=== PATIENT | male | born 1985 | race Hispanic/Latino ===

== ENCOUNTER 2024-06-19 16:26 | Emergency (ER) | payer BC ==
[~2024-06-19] VITALS: Ht 170.2 cm; Wt 81.6 kg
[2024-06-19 16:39] VITALS: BP 146/106; PULSE 94; RESP 18; TEMP 97.9
--- NOTE | 2024-06-19 18:13 | ERN ---
General Chief Complaint: Cough Stated Complaint: FEVER,NAUSEA,MULTIPLE COMPLAINTS Time Seen by MD: 17:00 Time Seen by Midlevel: 17:00 Source: patient History of Present Illness Initial Comments The patient is a 38-year-old male with no significant past medical history presenting to the emergency department with multiple complaints. Patient has been having intermittent episodes of subjective fever. He reports midepigastric abdominal pain that comes and goes. Associated symptoms include nausea and a persistent cough. Denies any sick contacts. Denies taking any medications on a daily basis. He was going to see his primary care doctor today but they did not accept walk-in so he decided to report to the ER for further evaluation. Allergies: Coded Allergies: Penicillins (Verified Allergy, 02/05/13) Past Medical History Past Medical History: Other Medical History Other: CHRONIC BACK PAIN Past Surgical History: None ROS Dictation CONSTITUTIONAL: Negative except for HPI HEAD/FACE: Negative except for HPI EENT: Negative except for HPI RESPIRATORY: Negative except for HPI GASTROINTESTINAL/ABDOMINAL: Negative except for HPI GENITOURINARY: Negative except for HPI MUSCULOSKELETAL: Negative except for HPI INTEGUMENTARY: Negative except for HPI NEUROLOGICAL/PSYCH: Negative except for HPI HEMATOLOGIC/LYMPHATIC: Negative except for HPI All Systems Negative, Except as noted above. 13 point review of systems assessed and all negative except for above. Physical Exam Physical Exam Dictation Vital Signs reviewed General Appearance: Alert, oriented x 3, no acute distress, well developed, nourished. Head and Face: non-traumatic. Eyes: PERRL, pink conjunctivas, eyelid no trauma, anterior chamber with arcus senilis. Ears: Pinnas intact and no signs of trauma or erythema ear canals clear and no discharge TM no erythema Nose: No discharge, no bleeding. Oropharynx: Mouth normal, tongue pink, pharynx clear,no erythema, tonsils no exudates, no abscesses noted, mucous membrane moist Neck: Supple, non-tender, no thyromegaly, no masses, no JVD, no bruits Breast:Deferred Chest:No tenderness, no crepitus, no paradoxical movement, no retractions Lungs:Clear, well-ventilated, symmetric, no rales, no wheezing, no rhonchi, no stridor, good breath sounds bilaterally Heart: Regular rate, regular rhythm, no murmur, no gallops Vascular: no peripheral edema, Abdomen: Soft, positive bowel sounds, nondistended, no guarding, nontender, no rebound, no masses no hepatomegaly, no splenomegaly, no Marsh's sign, no hernias. Rectal: Deferred Genital: Deferred Neurological: Normal speech, motor function intact, sensory function intact Musculoskeletal: Neck nontender, full range of motion, back nontender, full range of motion, Extremities: nontender, full range of motion Skin: Color pink, dry, no turgor, no rash, no lacerations, no abrasions, no contusions. Lymphatic: Deferred Results Laboratory and Microbiology Lab and Micro Result Laboratory Tests Test 06/19/24 19:17 White Blood Count 9.3 K/uL (4.8-10.8) Red Blood Count 5.00 MIL/uL (4.50-6.20) Hemoglobin 15.2 g/dL (14.0-18.0) Hematocrit 44.9 % (42-54) Mean Corpuscular Volume 89.8 fL (79-99) Mean Corpuscular Hemoglobin 30.4 pg (27.0-33.0) Mean Corpuscular Hemoglobin Concent 33.9 g/dL (32.0-36.0) Red Cell Distribution Width 12.9 % (11.0-15.5) Platelet Count 232 K/uL (130-400) Mean Platelet Volume 10.2 fL (7.5-10.5) Immature Granulocyte % (Auto) 0.5 % (0-1) Neutrophils (%) (Auto) 63.1 % (40.0-77.0) Lymphocytes (%) (Auto) 27.8 % (21.0-51.0) Monocytes (%) (Auto) 6.6 % (3.0-13.0) Eosinophils (%) (Auto) 1.7 % (0.0-8.0) Basophils (%) (Auto) 0.3 % (0.0-5.0) Neutrophils # (Auto) 5.9 K/uL (1.8-7.7) Lymphocytes # (Auto) 2.6 K/uL (1.0-4.8) Monocytes # (Auto) 0.6 K/uL (0.1-1.0) Eosinophils # (Auto) 0.16 K/uL (0.00-0.70) Basophils # (Auto) 0.03 K/uL (0.00-0.20) Absolute Immature Granulocyte (auto 0.05 K/uL (0-1) Nucleated Red Blood Cells 0.0 % (0.0-0.19) Sodium Level 139 mmol/L (136-145) Potassium Level 3.8 mmol/L (3.5-5.1) Chloride Level 101 mmol/L (101-111) Carbon Dioxide Level 31 mmol/L (21-32) Blood Urea Nitrogen 19 mg/dL (7-18) H Creatinine 1.0 mg/dL (0.5-1.3) Glomerular Filtration Rate Calc 100 mL/min (>90) Random Glucose 113 mg/dL (70-105) H Total Calcium 9.2 mg/dL (8.5-10.1) Magnesium Level 2.10 mg/dL (1.80-2.40) Total Bilirubin 1.0 mg/dL (0.2-1.0) Direct Bilirubin 0.2 mg/dL (0.0-0.3) Aspartate Amino Transf (AST/SGOT) 21 U/L (10-37) Alanine Aminotransferase (ALT/SGPT) 65 U/L (12-78) Alkaline Phosphatase 122 U/L (50-136) Total Protein 8.4 g/dL (6.0-8.3) H Albumin 4.2 g/dL (3.5-5.0) Lipase 39 U/L (16-77) Labs Reviewed?: Yes MDM MDM: The patient is a 38-year-old male with no significant past medical history presenting to the emergency department with multiple complaints. Patient has been having intermittent episodes of subjective fever. He reports midepigastric abdominal pain that comes and goes. Associated symptoms include nausea and a persistent cough. Denies any sick contacts. Denies taking any medications on a daily basis. He was going to see his primary care doctor today but they did not accept walk-in so he decided to report to the ER for further evaluation. Initial vital signs are stable. Patient was afebrile and nontoxic appearing. On physical examination the patient was in no acute distress. Abdominal examination is unremarkable. There was no tenderness, rebound, or guarding. Patient was presenting with very nonspecific symptoms however we will do an abdominal workup since he was having persistent epigastric abdominal pain. His CBC shows no leukocytosis, no anemia, no thrombocytopenia. Chemistries are unremarkable. Liver function tests are normal. Lipase is normal. No evidence of pancreatitis. No need for advanced imaging at this time. His abdominal examination was benign. We will discharged home with outpatient follow up. Differential diagnosis: Pancreatitis, dehydration, electrolyte abnormality There are no social concerns with this patient. Prescription drug management Prescriptions will include: None Medical management and examination interpretation discussions were had by me with other qualified healthcare professionals as indicated for the patient's care. ED Course Orders Procedure Category Date Status Time Cbc With Differential LAB 06/19/24 Complete 18:07 Basic Metabolic Panel LAB 06/19/24 Complete 18:07 Hepatic Function Panel LAB 06/19/24 Complete 18:07 Lipase LAB 06/19/24 Complete 18:07 Magnesium LAB 06/19/24 Complete 18:07 Urinalysis Profile LAB 06/19/24 Logged 18:07 Vital Signs Date Time Temp Pulse Resp B/P (MAP) Pulse Ox O2 Delivery O2 Flow Rate FiO2 06/19/24 16:39 97.9 94 18 146/106 99 Room Air 0 DX & DISP Disposition: Discharge Departure Impression: Primary Impression: Intermittent fever of unknown origin Additional Impression: Unspecified abdominal pain Condition: Stable Additional Instructions: Your blood work today is unremarkable. You are not anemic. Your kidney function is normal. Your electrolytes are normal. Your liver function tests are normal. Your lipase level was normal. No evidence of pancreatitis. I have given you a follow up with a waste water worker for outpatient evaluation. Please follow up with your primary care doctor in 2-3 days for repeat evaluation. Referrals: SELF,REFERRAL (PCP) LEANN MCCLAIN MD Time of Disposition: 20:39 I have reviewed the case, and I agree with, Diagnosis and Plan I performed the substantive portion of the visit. I have reviewed and personally made and approve the management plan that is documented in the note by myself or the [facility]. I acknowledge for responsibility for the patient's management plan. NIDHI CRAVEN Jun 19, 2024 18:13
[2024-06-19 19:25] LABS: BASOPHILS # (AUTO) 0.03 K/uL (0.00-0.20); BASOPHILS % (AUTO) 0.3 % (0.0-5.0); EOSINOPHILS # (AUTO) 0.16 K/uL (0.00-0.70); EOSINOPHILS % (AUTO) 1.7 % (0.0-8.0); HEMATOCRIT 44.9 % (42-54); IMMATURE GRANULOCYTE ABSOLUTE 0.05 K/uL (0-1); LYMPHOCYTES # (AUTO) 2.6 K/uL (1.0-4.8); LYMPHOCYTES % (AUTO) 27.8 % (21.0-51.0); MEAN CORPUSCULAR HEMOGLOBIN 30.4 pg (27.0-33.0); MEAN CORPUSCULAR HGB CONC 33.9 g/dL (32.0-36.0); MEAN CORPUSCULAR VOLUME 89.8 fL (79-99); MONOCYTES # (AUTO) 0.6 K/uL (0.1-1.0); MONOCYTES % (AUTO) 6.6 % (3.0-13.0); NEUTROPHILS # (AUTO) 5.9 K/uL (1.8-7.7); NEUTROPHILS % (AUTO) 63.1 % (40.0-77.0); PLATELET COUNT (AUTO) 232 K/uL (130-400); RED CELL DISTRIBUTION WIDTH 12.9 % (11.0-15.5); WHITE BLOOD COUNT (AUTO) 9.3 K/uL (4.8-10.8)
[2024-06-19 19:37] LABS: POTASSIUM 3.8 mmol/L (3.5-5.1)
[2024-06-19 19:40] LABS: ALBUMIN 4.2 g/dL (3.5-5.0); BILIRUBIN,DIRECT 0.2 mg/dL (0.0-0.3); MAGNESIUM 2.1 mg/dL (1.80-2.40); TOTAL PROTEIN, SERUM 8.4 g/dL (6.0-8.3)
--- NOTE | 2024-06-19 20:00 | NUR ---
CALLED IN LOBBY NO ANSWER
--- NOTE | 2024-06-19 20:30 | NUR ---
PT LEFT WITHOUT DISCHARGE PAPERWORK
== END 2024-06-19 21:01 | disposition home or self-care (01) ==
LOC: EDH 16:26
DX: R50.9 Fever, unspecified (principal); R10.13 Epigastric pain; Z88.0 Allergy status to penicillin
CPT/HCPCS: 36415; 80048; 80076; 83690; 83735; 85025; 99283